=== PATIENT | female | born 1980 | race Caucasian/White ===

== ENCOUNTER 2018-03-02 09:35 | Inpatient (IN) | payer MEDICAID ==
[~2018-03-02] VITALS: Ht 160 cm; Wt 63.0 kg
[2018-03-02 10:42] VITALS: BP 131/85
[2018-03-02 12:26] VITALS: BP 129/80
[2018-03-02] MEDS: LORazepam 2 MG TABLET PO PRN (12:29)
[2018-03-02] MEDS: VENLAFAXINE HCL 75 MG ER CAPSULE PO SCH (12:29)
[2018-03-02 16:42] VITALS: BP 107/68
[2018-03-03 06:23] VITALS: BP 109/64
[2018-03-03 07:47] LABS: BASOPHILS % (AUTO) 0.6 % (0.0-2.0); EOSINOPHILS % (AUTO) 3.2 % (1.0-6.0); HEMATOCRIT 35.4 % (36-46); HEMOGLOBIN 12.2 g/dL (12.0-16.0); LYMPHOCYTES # (AUTO) 2.3 K/uL (1.0-4.8); MEAN CORPUSCULAR HEMOGLOBIN 29.3 pg (26.0-34.0); MEAN CORPUSCULAR HGB CONC 34.3 G/dL (31.0-37.0); MEAN CORPUSCULAR VOLUME 86 fL (80-100); MONOCYTES % (AUTO) 9.8 % (2.0-9.0); NEUTROPHILS # (AUTO) 6.4 K/uL (1.8-7.7); NEUTROPHILS % (AUTO) 63.4 % (40.0-70.0); PLATELET COUNT (AUTO) 228 K/uL (150-450); RED BLOOD CELL COUNT(AUTO) 4.14 MIL/uL (4.00-5.20)
[2018-03-03 08:07] LABS: ALANINE AMINOTRANSFERASE 19 U/L (12-78); ALBUMIN 3.2 g/dL (3.4-5.0); ALKALINE PHOSPHATASE 55 U/L (46-116); ANION GAP 3 mmol/L (8-16); ASPARTATE AMINOTRANSFERASE 18 U/L (15-37); BILIRUBIN,TOTAL 0.6 mg/dL (0.1-1.0); CALCIUM, TOTAL 8.3 mg/dL (8.8-10.5); CARBON DIOXIDE 30 mmol/L (22-29); CHLORIDE 104 mmol/L (98-107); CREATININE 0.65 mg/dL (0.60-1.30); GLOMERULAR FILTR. RATE CALC > 60 mL/min (>60); GLUCOSE,RANDOM 102 mg/dL (70-110); HCG,QUANTITATIVE < 1 mIU/mL (0-6); POTASSIUM 3.9 mmol/L (3.5-5.1); SODIUM SERUM 137 mmol/L (136-145); TOTAL PROTEIN, SERUM 6.3 g/dL (6.4-8.2); UREA NITROGEN, BLOOD 7 mg/dL (7-18)
[2018-03-03 08:33] VITALS: BP 121/73
[2018-03-03] MEDS: IBUPROFEN 800 MG TABLET PO SCH ×2 (10:31→17:19)
[2018-03-03] MEDS: VENLAFAXINE HCL 75 MG ER CAPSULE PO SCH (10:31)
[2018-03-03 16:49] VITALS: BP 121/74
[2018-03-03] MEDS: LORazepam 2 MG TABLET PO PRN (19:34)
[2018-03-03] MEDS: ZOLPIDEM TARTRATE 10 MG TABLET PO PRN (21:31)
[2018-03-04 00:01] VITALS: BP 127/78
[2018-03-04] MEDS: LORazepam 2 MG TABLET PO PRN ×2 (00:04→19:07)
[2018-03-04] MEDS: IBUPROFEN 800 MG TABLET PO SCH ×3 (00:04→16:51)
[2018-03-04 08:18] VITALS: BP 122/66
[2018-03-04] MEDS: VENLAFAXINE HCL 75 MG ER CAPSULE PO SCH (09:20)
[2018-03-04 16:15] VITALS: BP 112/70
[2018-03-04] MEDS: ZOLPIDEM TARTRATE 10 MG TABLET PO PRN (21:35)
[2018-03-05] MEDS: IBUPROFEN 800 MG TABLET PO SCH ×3 (00:08→16:25)
[2018-03-05 05:52] VITALS: BP 123/71
[2018-03-05] MEDS: VENLAFAXINE HCL 75 MG ER CAPSULE PO SCH (09:02)
[2018-03-05 09:42] VITALS: BP 116/74
[2018-03-05] MEDS ORDERED: VENLAFAXINE HCL 75 MG ER CAPSULE PO ONE (10:00)
[2018-03-05] MEDS: LORazepam 2 MG TABLET PO PRN (13:06)
[2018-03-05 16:12] VITALS: BP 124/76
[2018-03-05] MEDS ORDERED: GuaiFENesin/D-METHORPHAN [SUGAR-FREE] 200-20MG/10 ML SYRUP UDCUP PO PRN (16:15)
[2018-03-05] MEDS ORDERED: CloNIDine HCL 0.1 MG TABLET PO PRN (16:15)
[2018-03-05] MEDS ORDERED: DOCUSATE SODIUM 100 MG CAPSULE PO PRN (16:15)
[2018-03-05] MEDS ORDERED: MAG HYDROX/AL HYDROX/SIMETH ES 30 ML SUSPENSION UDCUP PO PRN (16:15)
[2018-03-05] MEDS ORDERED: NICOTINE 14 MG/24 HOUR PATCH TD PRN (16:15)
[2018-03-05] MEDS ORDERED: ACETAMINOPHEN 325 MG TABLET PO PRN (16:15)
[2018-03-05] MEDS ORDERED: MAGNESIUM HYDROXIDE SUSPENSION 30 ML UDCUP PO PRN (16:15)
[2018-03-05] MEDS ORDERED: LOPERAMIDE HCL 2 MG CAPSULE PO PRN (16:15)
[2018-03-05] MEDS ORDERED: ONDANSETRON HCL 4 MG TABLET PO PRN (16:15)
[2018-03-05] MEDS ORDERED: IBUPROFEN 400 MG TABLET PO PRN (16:15)
[2018-03-05] MEDS ORDERED: PETROLATUM,WHITE 71 GM JELLY TP PRN (16:15)
[2018-03-05] MEDS ORDERED: ALBUTEROL SULFATE HFA 90 MCG/PUFF 8 GM INHALER IH PRN (16:15)
[2018-03-05] MEDS: ZOLPIDEM TARTRATE 10 MG TABLET PO PRN (21:30)
[2018-03-06] MEDS: IBUPROFEN 800 MG TABLET PO SCH ×2 (00:02→08:31)
[2018-03-06 05:47] VITALS: BP 113/72
[2018-03-06 08:24] VITALS: BP 123/70
[2018-03-06] MEDS ORDERED: VENLAFAXINE HCL 75 MG ER CAPSULE PO SCH (09:00)
[2018-03-06] MEDS ORDERED: VENL75CA55 PO (09:43)
== END 2018-03-06 11:10 | disposition home or self-care (01) | DRG 751 ==
LOC: B2S 12:02
PROVIDERS: ADMIT Psychiatry & Neurology Psychiatry; ATTEND Psychiatry & Neurology Psychiatry
DX: F33.2 Major depressive disorder, recurrent severe without psychotic features (principal); R45.851 Suicidal ideations; Z91.19 Patient's noncompliance with other medical treatment and regimen; F10.10 Alcohol abuse, uncomplicated; F12.90 Cannabis use, unspecified, uncomplicated; F41.9 Anxiety disorder, unspecified; F60.3 Borderline personality disorder; G47.00 Insomnia, unspecified; Z91.5 Personal history of self-harm
CPT/HCPCS: 90686